=== PATIENT | female | born 1955 | race Caucasian/White ===

== ENCOUNTER 2017-07-22 03:02 | Observation (INO) | payer OTHER ==
[~2017-07-22] VITALS: Ht 152.4 cm; Wt 0.9 kg
[~2017-07-22 03:02] MED LIST: ANORO ELLIPTA1 EACH INH; CYCLOBENZAPRINE10 M1 PO; HYDROCHLOROTH12.5 M3 PO; LIPITOR10 M1 PO; LOSARTAN POTASS50 M1 PO; PROAIR HFA8.5 GM INH; RANITIDINE HCL150 MG PO; VITAMIN B-121000 MC3 PO; VITAMIN D2000 UNI1 PO; VITAMIN E1000 UNI1 PO
[2017-07-22] MEDS ORDERED: PERCOCET 5-3251 EACH PO (13:04)
--- NOTE | 2017-07-22 13:04 | Patient Discharge Instructions ---
Discharge Instructions General Discharge Information You were seen/treated for: HIATAL HERNIA You had these procedures: ROBOTIC HIATAL HERNIA REPAIR, ANGELINE FUNDOPLICATION (07/22/17) Watch for these problems: FEVER>101.3, INCREASED PAIN, REDNESS/SWELLING/DRAINAGE, SHORTNESS OF BREATH, CHEST PAINS No bath, but you may shower: Yes Other wound care: OK TO REMOVE BANDAIDS IN 24 HOURS. [address] WHITE STERI STRIPS IN PLACE. KEEP INCISIONS CLEAN & DRY. Diet Continue normal diet: No Recommended Diet: FUNDOPLICATION DIET Activity Full Activity/No Limits: No Activity Self Limited: Yes Pounds, do NOT lift more than: 10 Other activity limits: NO HEAVY LIFTING. NO STRENUOUS ACTIVITY. Acute Coronary Syndrome Inclusion Criteria At DC or during hospital stay patient has or had the following: ACS DIAGNOSIS No Discharge Core Measures Meds if any: Prescribed or Continued at Discharge Meds if any: NOT Prescribed or Continued at Discharge Congestive Heart Failure Inclusion Criteria At DC or during hospital stay patient has or had the following: CHF DIAGNOSIS No Discharge Core Measures Meds if any: Prescribed or Continued at Discharge Meds if any: NOT Prescribed or Continued at Discharge Cerebrovascular accident Inclusion Criteria At DC or during hospital stay patient has or had the following: CVA/TIA Diagnosis No Discharge Core Measures Meds if any: Prescribed or Continued at Discharge Meds if any: NOT Prescribed or Continued at Discharge Venous thromboembolism Inclusion Criteria VTE Diagnosis No VTE Type NONE VTE Confirmed by (Test) NONE Discharge Core Measures - Per Current guidelines, there needs to be overlap - treatment for the first 5 days of Warfarin therapy. - If discharged on Warfarin prior to 5 days of - overlap therapy, the patient will need to be - assessed for post discharge needs including - *Post discharge parental anticoagulation - *Warfarin and/or parental anticoagulation education - *Follow up date to check INR post discharge At least 5 days overlap therapy as Inpatient No Meds if any: Prescribed or Continued at Discharge Note: Overlap Therapy is Warfarin and Anticoagulant Meds if any: NOT Prescribed or Continued at Discharge
--- NOTE | 2017-07-22 13:15 | Admission Core Measures ---
Acute Coronary Syndrome (CM) ACS Core Measures Acute Coronary Syndrome Diagnosis No Congestive Heart Failure (NEW) CHF Core Measures Congestive Heart Failure Diagnosis No Cerebrovascular Accident (NEW) CVA Core Measures CVA/TIA Diagnosis No Venous Thromboembolism VTE Core Ema (View Protocol) VTE Risk Factors Surgery No Mechanical VTE Prophylaxis d/t N/A MechProphylax Ordered No VTE Pharm Prophylaxis d/t NA PharmProphylax ordered Problem List As ranked by this Provider includes Assessment & Plan 1. Status post Merly fundoplication 2. COPD (chronic obstructive pulmonary disease) 3. Hypertension 4. Hiatal hernia 5. GERD (gastroesophageal reflux disease) HOME MEDS Home Med List Albuterol Sulfate (Proair Hfa) 90 MCG HFA.AER.AD 2 PUF INH PRN COPD (Reported ) Atorvastatin Calcium (Lipitor) 10 MG TABLET 1 TAB PO DAILY CHOLESTEROL ( Reported) Cholecalciferol (Vitamin D3) (Vitamin D) 2,000 UNIT TABLET 1 TAB PO DAILY SUPPLEMENT (Reported) Cyanocobalamin (Vitamin B-12) 1,000 MCG TABLET 1 TAB PO DAILY SUPPLEMENT ( Reported) Cyclobenzaprine HCl 10 MG TABLET 1 TAB PO PRN MUSCLE RELAXER (Reported) Hydrochlorothiazide (Unknown Strength) CAPSULE (Unknown Dose) PO QWED DIURETIC (Reported) Losartan Potassium 50 MG TABLET 1 TAB PO DAILY BP (Reported) Oxycodone HCl/Acetaminophen (Percocet 5-325 MG Tablet) 5 MG-325 MG TABLET 1-2 TAB PO Q4-6 PRN PRN PAIN CONTROL Ranitidine (Ranitidine HCl) 150 MG TABLET 1 TAB PO BID GI (Reported) Umeclidinium Brm/Vilanterol Tr (Anoro Ellipta 62.5-25 Mcg INH) 62.5 MCG-25 MCG/ ACTUATION BLST.W.DEV 1 PUFF INH DAILY COPD (Reported) Vitamin E Mixed (Vitamin E) 1,000 UNIT CAPSULE 1 CAP PO DAILY SUPPLEMENT ( Reported)
--- NOTE | 2017-07-22 13:16 | Event Note ---
Event Note Event Note: placed in observation status for pain control and diet advancement, with expectation she will likely go home tomorrow (post-op day#1). d/w
[2017-07-22 16:00] VITALS: BP 140/86
--- NOTE | 2017-07-22 16:35 | PN- General Surgery ---
Subjective Subjective: POC S/P ROBOTIC ANGELINE FUNDOPLICATION RESTING COMFORTABLY IN BED NOW SOME POST OP NAUSEA WHICH SHE STATES IS KNOWN TO HER WITH SURGERY DENIES CP, SOB, C/O RIGHT HAND TINGLING ONLY Objective Vital Signs and I&Os Intake & Output 07/22 1600 07/22 0800 07/22 0000 07/21 1600 07/21 0807/21 0000 Intake Total Output Total Balance Patient 2 lb Weight Physical Exam: CV: RRR LUNGS: CLEAR ABD: SOFT, DRSG DRY NO GUARDING TO PALP +BS EXT: WARM, DISTAL CMS INTACT BILAT Assessment/Plan Assessment/Plan SURGICAL STABLE RIGHT HAND TINGLING(PROBABLE OR POSITIONING, WILL OBSERVE) PLAN WILL CONT IN OBSERVATION STATUS OVERNIGHT FOR POST NAUSEA AND IV PAIN MANAGEMENT ADVANCE FUNDO I DIET TOLERATED HEP SQ/ALPS FOR DVT PROPHYLAXIS OOB /AMBULATE THIS EVENING NUTRITION TO SE IN AM PRIOR TO D/C TITRATE PAIN MEDS Core Measures Venous Thromboembolism VTE Risk Factors Surgery No Mechanical VTE Prophylaxis d/t N/A MechProphylax Ordered No VTE Pharm Prophylaxis d/t NA PharmProphylax ordered
[2017-07-22 18:00] VITALS: BP 150/90
[2017-07-22 20:00] VITALS: BP 130/71
[2017-07-22 22:00] VITALS: BP 134/74
--- NOTE | 2017-07-22 22:34 | Operative Report ---
Operative/Inv Procedure Report Surgery Date: 07/22/17 Name of Procedure: Robotic-assisted laparoscopic hiatal hernia repair with mesh and Merly fundoplication Pre-Operative Diagnosis: Hiatal hernia GERD Post-Operative Diagnosis: Same Estimated Blood Loss: less than 50ml Surgeon/Decorating Supervisor: Moiz BOWSER,Binu Olea/Shivani Stephenson APRN Anesthesia: general endotracheal tube Implants: Price bio a mesh Operative Indication: 61-year-old woman with medically refractory GERD and a hiatal hernia presents for surgical repair Operative/Procedure Note Note: After consent patient is brought to the operating room and laid supine. The abdomen was prepped and draped. Pneumoperitoneum was achieved through a periumbilical vereese needle. An optical trocar, 8 mm was then placed in the left mid abdomen. A total of 4 more ports were placed all perpendicular to the target anatomy in the low transverse midline. The last port was a 8 mm air seal for the plumber assistant. Finally up 5 mm port was placed in the epigastric region then extracted replaced with Eric retractor which was used to retract the liver. The robot was undocked and instruments placed. There is a moderate sized hiatal hernia with most of the fundus herniated into the chest. We began by taking down the peritoneum around the hiatus starting on the right crura. We got into a nice plane around the hernia sac and then circumferentially dissected the hiatus with scissor cautery. This portion of the operation was difficult as there was lots of intraperitoneal fat as well as a large liver which limited visualization. It took down the short gastrics with the vessel sealer to aid dissection of the left-sided hiatus. With adequate back and forth until we could circumferentially dissect the hiatus. During the dissection I noted a small hole in the fundus of the stomach. It was repaired with a running 3-0V LOC absorbable suture. Then placed a Karina drain around the GE junction and tied it to itself to aid in retraction. The esophagus was mobilized in the mediastinum. The hernia sac was then excised. Once the GE junction was below the diaphragm, the crura were then closed with a running 0 V lock nonabsorbable suture. Interrupted Tycron sutures were then used for reinforcement. We then passed the fundus posterior and perform shoeshine maneuver. A floppy Merly was then created by first anchoring the fundus to itself anteriorly with a 0 V lock. 2 more inferiorly based sutures were then placed using 2-0 Vicryl both incorporating the anterior portion of the esophagus to keep it anchored. We then placed Price bio a mesh over the crural closure. Hernia sac and Tracy drains were then removed. Liver edge was allowed to fall down in the ports were extracted. The fascia over a 12 mm air seal port was closed with 0 Vicryl suture. Remainder skin incisions closed with 4-0 Vicryl. Steri-Strips and sterile dressing applied. Sponge and counts are correct CC: Marguerite Mccain APRN
[2017-07-23 02:10] VITALS: BP 104/65
[2017-07-23 06:05] VITALS: BP 120/78
--- NOTE | 2017-07-23 08:24 | PN- General Surgery ---
See Addendum Subjective Subjective: pt in bed. complains of new onset chest pain and SOB that started about 10 minutes ago, radiates up both sides of her neck. had some chest pain last night and an ekg was ordered cih showed no changes from pre-op ekg. pt also still having some nausea but has been tolerating sips. denies fevers. ambulating to bathroom Objective Vital Signs and I&Os Vital Signs Date Time Temp Pulse Resp B/P B/P Pulse O2 O2 Flow FiO2 Mean Ox Delivery Rate 07/23 0605 98.0 73 20 120/78 94 Room Air 07/23 0210 97.9 72 20 104/65 93 Room Air 07/22 2240 Room Air Room Air 07/22 2200 98.9 100 20 134/74 94 Room Air 07/22 2000 98.4 95 20 130/71 Room Air 07/22 1800 98.4 102 24 150/90 97 Room Air 07/22 1600 98.4 99 18 140/86 96 Room Air Intake & Output 07/23 1600 07/23 0800 07/23 0000 07/22 1600 07/22 0800 07/22 0000 Intake Total Output Total 900 Balance -900 Output, Urine 900 Patient 2 lb Weight Physical Exam: gen- mildly sob, appears uncomfortable resp- clear bilaterally, no wheezes caraic- rrr abd- obese, soft, mildly tender, dressings clean and dry ext- no calf tenderness, no edema Assessment/Plan Assessment/Plan 61yo F SP hiatal hernia repair, gwendolyn POD1 here for post-op observation. Now with new CP and SOB. VVS stat EKG - ekg appears unchanged stat Troponin prn pain management and O2 if needed cont fund 1 diet encourage IS and ambulation nutrition consult this morning dvt ppx- hsq dc planning- possible dc later today or tomorrow if symptoms improve and lab work comes back ok Core Measures Venous Thromboembolism VTE Risk Factors Surgery No Mechanical VTE Prophylaxis d/t N/A MechProphylax Ordered No VTE Pharm Prophylaxis d/t NA PharmProphylax ordered
[2017-07-23 08:37] LABS: ABSOLUTE BASOPHIL COUNT 0 /CUMM (0.0-0.2); ABSOLUTE EOSINOPHIL COUNT 0 /CUMM (0.0-0.7); ABSOLUTE GRANULOCYTE CT 7.8 /CUMM (1.4-6.5); ABSOLUTE LYMPH COUNT 1.1 /CUMM (1.2-3.4); BASOPHIL % 0.2 % (0.0-2.0); EOSINOPHIL % 0 % (0-5); GRANULOCYTE % 78.4 % (42.2-75.2); HEMATOCRIT 33.5 % (37-47); MEAN CORPUSCULAR HGB 27.3 PG (27.0-31.0); MEAN CORPUSCULAR HGB CONC 33.2 G/DL (33.0-37.0); MEAN CORPUSCULAR VOLUME 82.2 FL (81.0-99.0); MEAN PLATELET VOLUME 8.7 FL (7.4-10.4); PLATELET COUNT 260 /CUMM (130-400); RBC DISTRIBUTION WIDTH 14.6 % (11.5-14.5); RED BLOOD CELL CT 4.08 /CUMM (4.20-5.40); WHITE BLOOD CELL COUNT 9.9 /CUMM (4.8-10.8)
--- NOTE | 2017-07-23 10:23 | RADIOLOGY REPORT ---
EXAMINATION: XR CHEST CLINICAL INFORMATION: Rule out pneumothorax. Shortness of breath. Status post robot assisted Merly fundoplication postop day 1. COMPARISON: Chest radiograph 11/17/2016. TECHNIQUE: 2 views of the chest were obtained. FINDINGS: Allowing for low lung volumes the lungs are clear without consolidation, edema, or effusion. No pneumothorax. Calcified uncoiled thoracic aorta. Multiple surgical clips are seen overlying the epigastrium related to recent Merly fundoplication. The osseous structures are intact. IMPRESSION: No pneumothorax or active disease in the chest.
[2017-07-23 11:11] VITALS: BP 134/79
--- NOTE | 2017-07-23 12:42 | PN- General Surgery ---
Surgical Brief Attending Note Brief Attending Note: Patient nauseated. Not tolerating po enough to stay hydrated. continue fluids/ fundo stage 1. reassess discharge suitability tomorrow.
[2017-07-23 13:38] VITALS: BP 130/82
[2017-07-23 20:41] VITALS: BP 130/89
[2017-07-24 06:17] VITALS: BP 130/78
--- NOTE | 2017-07-24 07:50 | PN- General Surgery ---
See Addendum Subjective Subjective: Reports ongoing, but improving chest/shoulder/back discomfort. Improving nausea. Tolerating fundoplication diet. Pain controlled with oxycodone and tylenol. No shortness of breath. No dizziness. Ambulating without difficulty. Anticipates discharge home today. Objective Vital Signs and I&Os Vital Signs Date Time Temp Pulse Resp B/P B/P Pulse O2 O2 Flow FiO2 Mean Ox Delivery Rate 07/24 616 98.4 103 22 130/78 92 07/23 2041 98.6 76 18 130/89 94 07/23 1338 97.9 70 20 130/82 94 Room Air 07/23 1111 64 18 134/79 97 Room Air 07/23 1038 77 150/80 Intake & Output 07/24 0800 07/24 0000 07/23 1600 07/23 0800 07/23 0000 07/22 1600 Intake Total 500 1100 800 Output Total 350 550 900 Balance 150 550 800 -900 Intake, IV 700 800 Intake, Oral 500 400 Output, Urine 350 550 900 Patient 2 lb Weight Physical Exam: General - alert & oriented x 3. comfortable. no acute distress. Lungs - decreased breath sounds b/l bases. clear. Cardiac - s1s2. reg. no subcutaneous emphysema appreciated. Abdomen - soft. dressings c/d/i. guzman-incisional tenderness. Extremities - warm bilaterally. no c/c/e. calves soft and nontender b/l athrombics active. Current Medications: Current Medications Sig/Stanislav Start time Last Medication Dose Route Stop Time Status Admin Acetaminophen 1,000 MG Q6 07/22 1800 DC 07/23 IV 07/23 1759 1231 Albuterol Sulfate 2 PUF Q4P PRN 07/22 2300 AC INH Albuterol Sulfate 2 PUF Q4P PRN 07/22 1300 AC INH Atorvastatin Calcium 10 MG 1700 07/23 1700 AC 07/23 PO 1844 Cholecalciferol 2,000 IU DAILY 07/23 0900 AC 07/23 PO 1037 Cyanocobalamin 1,000 MCG DAILY 07/23 0900 AC 07/23 PO 1037 Cyclobenzaprine HCl 10 MG TID PRN 07/22 1300 AC 07/23 PO 2200 Dextrose/Sodium 1,000 ML Q10H 07/23 1430 DC 07/23 Chloride IV 1844 Dextrose/Sodium 1,000 ML Q10H 07/22 1545 DC 07/23 Chloride IV 0454 Docusate Sodium 100 MG BID 07/22 2100 AC 07/23 PO 2200 Heparin Sodium 5,000 UNIT Q8 07/23 0600 AC 07/24 (Porcine) SC 0548 Lidocaine 1 PAT ONE TIME ONE 07/23 2215 DC 07/23 TOP 07/23 2216 2337 Losartan Potassium 50 MG DAILY 07/23 0900 AC 07/23 PO 1038 Morphine Sulfate 2 MG Q2-3 HRS NEEDED.. 07/22 1545 AC 07/23 IV 0803 Ondansetron HCl 4 MG Q6P PRN 07/22 1545 AC 07/22 IV 1731 Oxycodone HCl 5 MG Q4-6 PRN PRN 07/22 1545 AC PO Oxycodone HCl 10 MG Q4-6 PRN PRN 07/22 1545 AC 07/24 PO 0428 Patient Medication 1 ED ONE ONE 07/23 1630 DC Teaching ED 07/23 1631 Tiotropium Saline 1 PUF DAILY 07/23 0900 AC 07/23 INH 1038 Results Last 48 Hours of Labs: Laboratory Tests 07/23 07/23 1135 0838 Chemistry Troponin I (< 0.11 ng/ml) < 0.01 Urines Urine Color (YEL,AMB,STR) YEL Urine Clarity (CLEAR) HAZY H Urine pH (5.0 - 8.0) 6.0 Ur Specific [place] (1.001 - 1.035) 1.025 Urine Protein (NEG,<30 MG/DL) TRACE H Urine Ketones (NEG) NEG Urine Nitrite (NEG) NEG Urine Bilirubin (NEG) NEG Urine Urobilinogen (0.1 - 1.0 EU/dl) 0.2 Ur Leukocyte Esterase (NEG) NEG Ur Microscopic SEDIMENT EXAMINED Urine RBC (0 - 5 /HPF) 25-50 H Urine WBC (0 - 2 /HPF) 1-3 H Ur Epithelial Cells (NONE,FEW) FEW Hyaline Casts (0/LPF) RARE H Urine Mucus (FEW,NONE) FEW Urine Hemoglobin (NEG) MOD H Urine Glucose (N MG/DL) NEG 07/23 0725 Chemistry Sodium (137 - 145 mmol/L) 140 Potassium (3.5 - 5.1 mmol/L) 3.8 Chloride (98 - 107 mmol/L) 104 Carbon Dioxide (22 - 30 mmol/L) 28 Anion Gap (5 - 16) 9 BUN (7 - 17 mg/dL) 13 Creatinine (0.5 - 1.0 mg/dL) 0.8 Estimated GFR (>60 ml/min) > 60 BUN/Creatinine Ratio (7 - 25 %) 16.3 Troponin I (< 0.11 ng/ml) < 0.01 Hematology CBC w Diff NO MAN DIFF REQ WBC (4.8 - 10.8 /CUMM) 9.9 RBC (4.20 - 5.40 /CUMM) 4.08 L Hgb (12.0 - 16.0 G/DL) 11.1 L Hct (37 - 47 %) 33.5 L MCV (81.0 - 99.0 FL) 82.2 MCH (27.0 - 31.0 PG) 27.3 MCHC (33.0 - 37.0 G/DL) 33.2 RDW (11.5 - 14.5 %) 14.6 H Plt Count (130 - 400 /CUMM) 260 MPV (7.4 - 10.4 FL) 8.7 Gran % (42.2 - 75.2 %) 78.4 H Lymphocytes % (20.5 - 51.1 %) 11.5 L Monocytes % (1.7 - 9.3 %) 9.9 H Eosinophils % (0 - 5 %) 0 Basophils % (0.0 - 2.0 %) 0.2 Absolute Granulocytes (1.4 - 6.5 /CUMM) 7.8 H Absolute Lymphocytes (1.2 - 3.4 /CUMM) 1.1 L Absolute Monocytes (0.10 - 0.60 /CUMM) 1.0 H Absolute Eosinophils (0.0 - 0.7 /CUMM) 0 Absolute Basophils (0.0 - 0.2 /CUMM) 0 Assessment/Plan Assessment/Plan This 61 year old female with hx copd, htn, hld, gerd, POD#2 s/p hiatal hernia repair, gwendolyn fundoplication tolerating fundoplication diet pain controlled with oxycodone / tylenol cxr / ekg negative oob/ambulating hep sc - dvt ppx IST nutrition consult done d/c home today observation status extended, with anticipation for discharge home today will d/w Core Measures Venous Thromboembolism VTE Risk Factors Surgery No Mechanical VTE Prophylaxis d/t N/A MechProphylax Ordered No VTE Pharm Prophylaxis d/t NA PharmProphylax ordered VTE Risk Factors Surgery No Mechanical VTE Prophylaxis d/t N/A MechProphylax Ordered No VTE Pharm Prophylaxis d/t NA PharmProphylax ordered
[2017-07-24] MEDS ORDERED: OXYCODONE HCL5 M1 PO (07:52)
[2017-07-24 09:51] LABS: ABSOLUTE BASOPHIL COUNT 0 /CUMM (0.0-0.2); ABSOLUTE EOSINOPHIL COUNT 0.1 /CUMM (0.0-0.7); ABSOLUTE GRANULOCYTE CT 4.7 /CUMM (1.4-6.5); ABSOLUTE LYMPH COUNT 2.2 /CUMM (1.2-3.4); ABSOLUTE MONOCYTE COUNT 0.7 /CUMM (0.10-0.60); BASOPHIL % 0.5 % (0.0-2.0); EOSINOPHIL % 1.2 % (0-5); GRANULOCYTE % 60.5 % (42.2-75.2); HEMATOCRIT 33.4 % (37-47); MEAN CORPUSCULAR HGB 27.7 PG (27.0-31.0); MEAN CORPUSCULAR HGB CONC 33.6 G/DL (33.0-37.0); MEAN CORPUSCULAR VOLUME 82.5 FL (81.0-99.0); MEAN PLATELET VOLUME 8.6 FL (7.4-10.4); PLATELET COUNT 220 /CUMM (130-400); RED BLOOD CELL CT 4.05 /CUMM (4.20-5.40); WHITE BLOOD CELL COUNT 7.7 /CUMM (4.8-10.8)
--- NOTE | 2017-07-24 11:23 | RADIOLOGY REPORT ---
EXAMINATION: XR GASTROGRAFIN SWALLOW CLINICAL INFORMATION: History of Merly fundoplication of hiatal hernia. Postoperative vomiting. COMPARISON: Barium swallow from 03/09/2017. TECHNIQUE: Esophagram was performed with oral intake of 20 mL of Gastrografin contrast material. Multiple spot fluoroscopy images were obtained. FLUOROSCOPY TIME: 35 seconds. NUMBER OF IMAGES: 9 images. FINDINGS: The previously noted moderate sized hiatal hernia has been surgically reduced/repaired. No recurrent hernia. The patient was evaluated in upright position. In this position, the esophageal motility was normal to the level of the fundoplication. The contrast column was relatively stagnant within the distal esophagus. At the level of the Merly fundoplication, there was intermittent relaxation of the esophagogastric junction, allowing intermittent passage of contrast material into the normal sized stomach. The esophagus had smooth contour at the site of fundoplication; no evidence of ulceration. No contrast leakage. Multiple surgical clips in the right upper quadrant from prior cholecystectomy. IMPRESSION: - Previously noted hiatal hernia has been reduced/repaired. - Delayed esophageal emptying was observed. There was intermittent, delayed passage of contrast through the region of the esophagogastric junction at the site of Merly fundoplication. - No postoperative leakage of contrast from the esophagus or stomach.
[2017-07-24 14:47] VITALS: BP 100/70
[2017-07-24 21:50] VITALS: BP 110/74
[2017-07-25 06:30] VITALS: BP 140/84
[2017-07-25 08:52] LABS: ABSOLUTE BASOPHIL COUNT 0 /CUMM (0.0-0.2); ABSOLUTE EOSINOPHIL COUNT 0.2 /CUMM (0.0-0.7); ABSOLUTE GRANULOCYTE CT 3.9 /CUMM (1.4-6.5); ABSOLUTE LYMPH COUNT 2.2 /CUMM (1.2-3.4); ABSOLUTE MONOCYTE COUNT 0.8 /CUMM (0.10-0.60); BASOPHIL % 0.4 % (0.0-2.0); EOSINOPHIL % 2.6 % (0-5); GRANULOCYTE % 54.9 % (42.2-75.2); MEAN CORPUSCULAR HGB 27.3 PG (27.0-31.0); MEAN CORPUSCULAR HGB CONC 33.3 G/DL (33.0-37.0); MEAN PLATELET VOLUME 8.5 FL (7.4-10.4); PLATELET COUNT 254 /CUMM (130-400); RED BLOOD CELL CT 4.14 /CUMM (4.20-5.40); WHITE BLOOD CELL COUNT 7.2 /CUMM (4.8-10.8)
--- NOTE | 2017-07-25 09:59 | PN- General Surgery ---
Surgical Brief Attending Note Brief Attending Note: STABLE. c/o vomiting. ugi normal findings after surgery. encourage slow intake. d/c home.
[2017-07-25 14:40] VITALS: BP 120/70
[2017-07-25] MEDS ORDERED: ZOFRAN ODT4 M1 SL (15:19)
--- NOTE | 2017-07-27 13:09 | Surgical Discharge Summary ---
Visit Information Visit Dates Admission Date: 07/22/17 Discharge Date: 07/25/17 History of Present Illness Chief Complaint: HIATAL HERNIA Medical History Blood Transfusion Hx: No Neurological: DYSTONIA Cardiovascular: hypertension, hyperlipidemia Respiratory: NONE Gastrointestinal: GERD, hiatal hernia Hepatic: NONE Renal: NONE Musculoskeletal: DYSTONIA Psychiatric: anxiety Endocrine: NONE Blood Disorders: NONE Cancer(s): UTERINE CANCER DIRECTOR REACTOR PROJECTS/Reproductive: HYSTERECTOMY History of MRSA: No History of VRE: No History of CDIFF: No Isolation History: Standard Surgical History Pertinent Surgical History: ROBOTIC HIATAL HERNIA REPAIR WITH MESH AND ANGELINE FUNDOPLICATION Psychosocial History What is Your Primary Language? Malay Review of Systems: SEE HP Hospital Course Course Attending Physician: Binu Rockwell MD Primary Care Physician: Marguerite Mccain APRN Hospital Course: PATIENT ADMITTED AFTER SURGERY. THERE WAS VOMITING WITH LIQUIDS THAT PROLONGED STAY. UGI SHOWED NO LEAK. Allergies: Coded Allergies: Sulfa (Sulfonamide Antibiotics) (HIVES, SWELLING 07/17/17) sulfadoxine (HIVES, SWELLING 07/17/17) Disposition Summary Disposition Principal Diagnosis: HIATAL HERNIA Additional Diagnosis: GERD Discharge Disposition: home or self care Discharge Instructions General Discharge Information Code Status: Full Code Patient's Diet: FUNDO STAGE 2 Patient's Activity: NO LIFTING Follow-Up Instructions/Appts: 2 WEEKS Medications at Discharge Discharge Medications: Stop taking the following medications: Ranitidine (Ranitidine HCl) 150 MG TABLET ORAL TWICE DAILY Continue taking these medications: Atorvastatin Calcium (Lipitor) 10 MG TABLET 1 Tablet ORAL DAILY Comments: Last Taken: 07/24/17 Time: 5:00 PM Losartan Potassium (Losartan Potassium) 50 MG TABLET 1 Tablet ORAL DAILY Comments: Last Taken: 07/25/17 Time: 8:00 AM Cyanocobalamin (Vitamin B-12) 1,000 MCG TABLET 1 Tablet ORAL DAILY Comments: Last Taken: 07/25/17 Time: 8:00 AM Cholecalciferol (Vitamin D3) (Vitamin D) 2,000 UNIT TABLET 1 Tablet ORAL DAILY Comments: Last Taken: 07/25/17 Time: 8:00 AM Vitamin E Mixed (Vitamin E) 1,000 UNIT CAPSULE 1 Capsule ORAL DAILY Comments: NOT GIVEN IN HOSPITAL Cyclobenzaprine HCl (Cyclobenzaprine HCl) 10 MG TABLET 1 Tablet ORAL as needed for MUSCLE RELAXER Comments: Last Taken: 07/23/17 Time: 10:00 PM Umeclidinium Brm/Vilanterol Tr (Anoro Ellipta 62.5-25 Mcg INH) 62.5 MCG-25 MCG/ ACTUATION BLST.W.DEV 1 PUFF Inhale through mouth DAILY Comments: NOT GIVEN IN HOSPITAL Albuterol Sulfate (Proair Hfa) 90 MCG HFA.AER.AD 2 Puff Inhale through mouth as needed for COPD Comments: NOT GIVEN IN HOSPTIAL Hydrochlorothiazide (Hydrochlorothiazide) 12.5 MG CAPSULE 25 Milligram ORAL EVERY THURSDAY Comments: NOT GIVEN IN HOSPTIAL Start taking the following new medications: Ondansetron (Zofran Odt) 4 MG TAB.RAPDIS 1 Tablet SUBLINGUAL THREE TIMES DAILY Qty = 15 No Refills
== END 2017-07-25 16:00 ==
LOC: DELPENDDIS → STS 03:02 → PACUH 12:36 → ENRESERV 14:20 → ENTRNSPT 15:27 → EDTRNSPTSTS 15:35 → EDTRNSPT 15:35 → 2NB 15:42 → CMPTRNSPT 15:58 → ENPENDDIS 07-24 09:08 → ENTRNSPT 07-25 15:49 → EDTRNSPTSTS 07-25 16:00 → 2NB 07-25 16:00 → EDTRNSPT 07-25 16:00 → CMPTRNSPT 07-25 16:07
PROVIDERS: Physician Assistant
DX: K44.9 Diaphragmatic hernia without obstruction or gangrene (principal); K91.0 Vomiting following gastrointestinal surgery; I10 Essential (primary) hypertension; E78.5 Hyperlipidemia, unspecified; K21.9 Gastro-esophageal reflux disease without esophagitis; F41.9 Anxiety disorder, unspecified; Y83.8 Other surgical procedures as the cause of abnormal reaction of the patient, or of later complication, without mention of misadventure at the time of the procedure; G24.9 Dystonia, unspecified; Z85.42 Personal history of malignant neoplasm of other parts of uterus; Z79.899 Other long term (current) drug therapy
CPT/HCPCS: 43282; 64488; S2900; 1255; 36415; 36592; 71046; 74230; 81001; 82436; 87086; 93005; 93010; C1781; C9399; J0131; J0690; J1100; J1644; J1885; J2405; J3490; J7042